=== PATIENT | female | born 2000 | race Caucasian/White ===

== ENCOUNTER 2021-09-09 22:35 | Emergency (ER) | payer OTHER, SELFPAY ==
[2021-09-09 22:59] VITALS: BP 134/66; PULSE 93; TEMP 36.9; O2SAT 99
[2021-09-09 23:02] VITALS: BMI 20.7
--- NOTE | 2021-09-09 23:09 | DI.US.S_ITS ---
PROCEDURE: US OB <= 14 WEEKS FETUS INDICATIONS: 8 weks with vag spotting OUTSIDE/PRIOR DATING DATA: Last menstrual period (LMP): July 04, 2020 LMP-based estimated date of delivery (ADITYA): April 20, 2022 First dating scan (date and location): September 09, 2021 Estimated date of delivery (ADITYA) from first dating scan: May 07, 2022 The calculations are made using the ultrasound ADITYA of May 07, 2022 TECHNIQUE: Real-time scanning was performed of the fetus and maternal pelvic organs, with image documentation. Endovaginal scanning was also performed to better visualize the fetus and maternal ovaries. COMPARISON: None. FINDINGS: Embryo: Single living intrauterine identified. Yolk sac and pole are identified. [place]-rump length measures 0.2 centimeters corresponding to ultrasound estimated gestational age of 5 weeks 5 days. Heart rate: 104 beats per minute Maternal organs: Left ovary not seen. Right corpus luteal cyst noted. IMPRESSION: Single living intrauterine with ultrasound estimated gestational age of 5 weeks 5 days corresponding to ultrasound ADITYA of May 07, 2022. Dictated by: Raysa Deshpande MD, PhD on 09/10/2021 at 0:32 We strive to produce accurate, complete, and clear reports of imaging services. To assist us in improving patient care, this report was composed using standard report templates and voice recognition software. Therefore, it may contain abnormal punctuation, misrecognitions, insertions and/or omissions. Occasional wrong-word or sound-alike substitutions may occur. Though we review the report and make efforts to correct it, we do recommend that the report be read carefully in proper context to recognize any text inaccuracies. Approved by: Raysa Deshpande MD, PhD on 09/10/2021 at 0:34
[2021-09-09 23:32] LABS: Add Manual Diff / Slide Review NO; Basophils Absolute Auto 0 /uL (0-100); Basophils Percent Auto 0.3 % (0-2); Eosinophils Absolute Auto 100 /uL (0-450); Eosinophils Percent Auto 1.9 % (2-4); Hematocrit 38.8 % (36-46); Hemoglobin 13.2 g/dL (12.0-16.0); Lymphocytes Absolute Auto 1600 /uL (1100-4500); Lymphocytes Percent Auto 26.8 % (25-40); Mean Corpuscular Hemoglobin 28.4 PG (26-34); Mean Corpuscular Volume 83.5 fL (80-100); Monocytes Absolute Auto 500 /uL (0-900); Monocytes Percent Auto 8.2 % (3-14); Neutrophils Absolute Auto 3700 /uL (1500-7000); Neutrophils Percent Auto 62.8 % (50-75); Platelet Count 274 X10^3/uL (150-400); Red Blood Cell Count 4.65 X10^6/uL (4.0-5.2); Red Cell Distribution Width 12.9 % (11.6-14.8); White Blood Cell Count 5.9 X10^3/uL (4.5-11.0)
--- NOTE | 2021-09-09 23:36 | ED.GENADULT ---
HPI - General Adult General Chief complaint: Vaginal Bleeding Stated complaint: 8 weeks , spotting Time Seen by Provider: 09/09/21 23:09 Source: patient Mode of arrival: Ambulatory Limitations: no limitations History of Present Illness HPI narrative: 20-year-old female. Is 8 weeks . Has not seen an OB provider at this point during this . Her earlier today started having some light vaginal spotting. No cramping. No urinary symptoms. No change in bowel habits. No fevers. No abdominal pain. Related Data Allergies Allergy/AdvReac Type Severity Reaction Status Date / Time No Known Drug Allergies Allergy Verified 09/09/21 23:01 Review of Systems Constitutional Constitutional: Reports system reviewed and no additional complaints, except as documented Gastrointestinal Gastrointestinal: Reports as per HPI and Reports system reviewed and no additional complaints, except as documented Genitourinary Genitourinary: Reports system reviewed and no additional complaints, except as documented and Reports as per HPI Integumentary/Breasts Skin/Breast: Reports system reviewed and no additional complaints, except as documented Hematologic/Lymphatic On Anticoagulants: No Patient History Medical History Healthy adult Social History Smoking Status: Never smoker Smoking Status: Never smoker Substance Use Type: does not use Exam Initial Vital Signs Initial Vital Signs: Vital Signs Temperature 98.4 F 09/09/21 22:59 Pulse Rate 93 H 09/09/21 22:59 Blood Pressure 134/66 09/09/21 22:59 Pulse Oximetry 99 09/09/21 22:59 Resp Effort & Inspection: normal respiratory effort Cardio Rate: regular rate GI Inspection: normal to inspection Skin General: no rashes or lesions noted Neuro General: patient alert, patient awake and moves all extremities Extrem General: normal to inspection Psych Appearance: grossly normal and well kempt Course Orders Ordered: ED Orders 09/09/21 23:09 US OB <= 14 weeks fetus Stat 09/09/21 23:20 ABO RH Type Stat Basic Metabolic Panel Stat Complete Blood Count AUTO DIFF Stat HCG Quantitative /Beta subunit Stat Vital Signs Vital signs: Vital Signs - 8 hr 09/09/21 22:59 09/10/21 01:13 Temperature 98.4 F Pulse Rate 93 H 80 Respiratory Rate 18 Blood Pressure 124/65 Blood Pressure [Left Arm] 134/66 Pulse Oximetry 99 98 Medical Decision Making Lab Data Lab results reviewed: Yes I reviewed the patient's lab results. Result diagrams: 09/09/21 23:20 09/09/21 23:20 Labs: Lab Results 09/09/21 09/09/21 09/09/21 Range/Units 23:20 23:20 23:20 WBC 5.9 (4.5-11.0) X10^3/uL RBC 4.65 (4.0-5.2) X10^6/uL Hgb 13.2 (12.0-16.0) g/dL Hct 38.8 (36-46) % MCV 83.5 (80-100) fL MCH 28.4 (26-34) PG MCHC 34.0 (30-36) % RDW 12.9 (11.6-14.8) % Plt Count 274 (150-400) X10^3/uL Neut % (Auto) 62.8 (50-75) % Lymph % (Auto) 26.8 (25-40) % [place] % (Auto) 8.2 (3-14) % Eos % (Auto) 1.9 L (2-4) % Baso % (Auto) 0.3 (0-2) % Neut # (Auto) 3700 (2314-0388) /uL Lymph # (Auto) 1600 (7345-6298) /uL [place] # (Auto) 500 (0-900) /uL Eos # (Auto) 100 (0-450) /uL Baso # (Auto) 0 (0-100) /uL Sodium 141 (137-145) mmol/L Potassium 3.9 (3.4-5.1) mmol/L Chloride 104 (98-107) mmol/L Carbon Dioxide 28 (22-32) mmol/L BUN 10 (7-17) mg/dL Creatinine 0.59 (0.52-1.04) mg/dL Estimated GFR > 60.0 (>60) mL/min BUN/Creatinine Ratio 16.9 (6-22) Glucose 101 H (70-100) mg/dL Calcium 9.9 (8.4-10.2) mg/dL HCG, Quant 66185 mIU/mL Blood Type O Positive Urine Dip Bedside Urine Glucose Negative Bedside Urine Bilirubin - Negative Bedside Urine Ketone - Negative Urine Specific [place] 1.015 Bedside Urine Occult Blood +/- Bedside Urine pH 8.0 Bedside Urine Protein - Negative Bedside Urine Urobilinogen - Negative Bedside Urine Nitrite - Negative Bedside Urine Leukocytes - Negative Esterase Point of care testing: Urine Dip Bedside Urine Glucose Negative Bedside Urine Bilirubin - Negative Bedside Urine Ketone - Negative Urine Specific [place] 1.015 Bedside Urine Occult Blood +/- Bedside Urine pH 8.0 Bedside Urine Protein - Negative Bedside Urine Urobilinogen - Negative Bedside Urine Nitrite - Negative Bedside Urine Leukocytes - Negative Esterase Imaging Data US - OB: Radiologist's Impression: [address] [address] Ultrasound Report Signed Patient: Denice Ramey MR#: [id number] : 2000 Acct:[id number] Age/Sex: 20 / F Date of Service: 09/09/21 Loc: ED Accession Number: [id number] ?? Procedure: US OB <= 14 weeks fetus Ordering Provider: Mario Blackman D.O. PROCEDURE:? US OB <= 14 WEEKS FETUS ? INDICATIONS:? 8 weks with vag spotting ? OUTSIDE/PRIOR DATING DATA:? Last menstrual period (LMP):? July 04, 2020 LMP-based estimated date of delivery (ADITYA):? April 20, 2022 First dating scan (date and location):? September 09, 2021 Estimated date of delivery (ADITYA) from first dating scan:? May 07, 2022 The calculations are made using the ultrasound ADITYA of May 07, 2022 ? TECHNIQUE:? Real-time scanning was performed of the fetus and maternal pelvic organs, with image documentation.? Endovaginal scanning was also performed to better visualize the fetus and maternal ovaries.? ? COMPARISON:? None. ? FINDINGS:? ? Embryo:? Single living intrauterine identified.? Yolk sac and pole are identified.? [place]-rump length measures 0.2 centimeters corresponding to ultrasound estimated gestational age of 5 weeks 5 days. Heart rate:? 104 beats per minute ? Maternal organs:? Left ovary not seen.? Right corpus luteal cyst noted. ? ? IMPRESSION:? Single living intrauterine with ultrasound estimated gestational age of 5 weeks 5 days corresponding to ultrasound ADITYA of May 07, 2022. ? ? Dictated by: Raysa Deshpande MD, PhD on 09/10/2021 at 0:32 ? We strive to produce accurate, complete, and clear reports of imaging services. To assist us in improving patient care, this report was composed using standard report templates and voice recognition software. Therefore, it may contain abnormal punctuation, misrecognitions, insertions and/or omissions. Occasional wrong-word or sound-alike substitutions may occur. Though we review the report and make efforts to correct it, we do recommend that the report be read carefully in proper context to recognize any text inaccuracies. ? ? Approved by: Raysa Deshpande MD, PhD on 09/10/2021 at 0:34?? MDM Narrative Medical decision making narrative: Well-appearing, Rh positive, ultrasound shows live intrauterine at 5 weeks which corresponds to projected day. Did discuss this with her. We can hold on further workup for now. She was given return precautions and follow-up instructions. She expressed understanding and agreement Discharge Plan Departure Patient Disposition: Home Clinical Impression: Threatened miscarriage Instructions: DI for Vaginal Bleeding During Activity Restrictions/Additional Instructions: Your workup here in the emergency department is very reassuring. The ultrasound does show a live fetus in the uterus at approximately 5 weeks and 5 days gestation. Continue to take your vitamins. You do need to follow-up with a OB provider in the next couple weeks. Return to the emergency department for any new or worsening symptoms
[2021-09-09 23:45] LABS: BUN Creatinine Ratio 16.9 (6-22); Blood Urea Nitrogen 10 mg/dL (7-17); Calcium 9.9 mg/dL (8.4-10.2); Carbon Dioxide 28 mmol/L (22-32); Chloride 104 mmol/L (98-107); Estimated Glomerular Filt Rate > 60.0 mL/min (>60); Glucose 101 mg/dL (70-100); HEMOLYSIS < 15 (0-50); Potassium 3.9 mmol/L (3.4-5.1); Sodium 141 mmol/L (137-145)
[2021-09-10 00:27] LABS: HCG Quantitative /Beta subunit 20370 mIU/mL
[2021-09-10 01:13] VITALS: BP 124/65; PULSE 80; RESP 18; O2SAT 98
== END 2021-09-10 01:14 | disposition home or self-care (01) ==
PROVIDERS: Emergency Provider Emergency Medicine
DX: O20.0 Threatened abortion (principal); Z3A.01 Less than 8 weeks gestation of pregnancy
CPT/HCPCS: 36415; 76801; 80048; 81003; 84702; 85025; 86900; 86901; 99283; 99284

== ENCOUNTER → 2021-11-06 13:47 | Outpatient (CLI) | payer OTHER, SELFPAY ==
[2021-11-06 14:11] LABS: Appearance Urine UA CLEAR; Bilirubin Urine UA NEGATIVE (NEGATIVE); Color Urine UA YELLOW; Glucose Urine UA NEGATIVE (Negative); Ketones Urine UA NEGATIVE (NEGATIVE); Leukocyte Esterase Urine UA TRACE (NEGATIVE); Nitrite Urine UA NEGATIVE (Negative); Occult Blood Urine UA NEGATIVE (Negative); Protein Urine UA NEGATIVE (Negative); Urobilinogen Urine UA 0.2 E.U./dL (0.2)
[2021-11-06 14:19] LABS: Bacteria Urine Few (2-10); Culture Indicated Urine Cult Not Indicated; RBC Urine 0-1/HPF (0-5/HPF); Squamous Epithelial Cell Urine 5-10 /HPF (0-5/HPF); WBC Urine 1-5/HPF (0-5/HPF)
[2021-11-06 14:53] LABS: Add Manual Diff / Slide Review NO; Basophils Absolute Auto 0 /uL (0-100); Basophils Percent Auto 0.1 % (0-2); Eosinophils Absolute Auto 0 /uL (0-450); Eosinophils Percent Auto 0.5 % (2-4); Hematocrit 38.5 % (36-46); Hemoglobin 12.8 g/dL (12.0-16.0); Lymphocytes Absolute Auto 1000 /uL (1100-4500); Lymphocytes Percent Auto 13.2 % (25-40); Mean Corpuscular HGB Conc 33.1 % (30-36); Mean Corpuscular Volume 84.7 fL (80-100); Monocytes Absolute Auto 600 /uL (0-900); Neutrophils Absolute Auto 5700 /uL (1500-7000); Neutrophils Percent Auto 78.2 % (50-75); Platelet Count 259 X10^3/uL (150-400); Red Blood Cell Count 4.55 X10^6/uL (4.0-5.2); Red Cell Distribution Width 12.3 % (11.6-14.8); White Blood Cell Count 7.2 X10^3/uL (4.5-11.0)
[2021-11-07 08:10] LABS: RPR Screen Non Reactive (Non Reactive); Varicella IgG Antibody 199 index (Immune >165)
[2021-11-09 16:13] LABS: Hepatitis B Surface Antigen NEGATIVE s/c (NEGATIVE); Rubella Antibody IgG 43.4 IU/mL (>15)
[2021-11-09 16:30] LABS: HIV 1 & 2 Ab/Ag 4th Gen Combo NEGATIVE (NEGATIVE); Hep C Virus Ab w/Reflex Quant NEGATIVE s/c (NEGATIVE)
== END ==
PROVIDERS: Referring Provider Obstetrics & Gynecology; Visit Provider Obstetrics & Gynecology
DX: Z34.80 Encounter for supervision of other normal pregnancy, unspecified trimester (principal)
CPT/HCPCS: 36415; 80055; 81003; 81015; 86787; 86803; 86850; 86900; 86901; 87086; 87389

== ENCOUNTER → 2022-01-13 12:03 | Outpatient (CLI) | payer OTHER, SELFPAY ==
--- NOTE | 2022-01-13 12:04 | DI.US.S_ITS ---
PROCEDURE: US OB >= 14 WEEKS FETUS INDICATIONS: ANATOMY OUTSIDE/PRIOR DATING DATA: Last menstrual period (LMP): July 04, 2021. LMP-based estimated date of delivery (ADITYA): April 20, 2022. First dating scan (date): September 09, 2021. Estimated date of delivery (ADITYA) from first dating scan: May 07, 2022. TECHNIQUE: Real-time scanning was performed of the fetus, with image documentation and biometric measurements. COMPARISON: None. FINDINGS: General: A single living intrauterine gestation is present. Presentation: Transverse. Placenta: Placental position is anterior , without previa. Amniotic fluid index: 18.7 cm, normal range is 5-24 cm. Single deepest vertical pocket is 4.8 cm. heart rate: 137 beats per minute. Maternal cervical canal: 3.9 cm long. Normal lower limit is 2.5 cm. biometrics: Biparietal diameter: 5.7 cm Head circumference: 21.7 cm Abdominal circumference: 19.7 cm Femur length: 4.1 cm Clinically estimated gestational age: 23 weeks, 5 days Composite gestational age from present scan: 23 weeks, 5 days Estimated weight and percentile: 638 g; 49 percentile Anatomic survey: Neuro: Ventricles are non-dilated at less than 10 mm. Cisterna magna is normal at 3-11 mm. Cerebellum is normal in size and morphology. Nuchal skin fold: Normal at less than 6 mm between 14-21 weeks gestational age. Face: Nose and lips, facial profile are normal. Spine: No evidence for spina bifida. Heart: 4-chambered heart is present, with normal ventricular outflow tracts. Diaphragm: Diaphragm is intact. Stomach: Left-sided stomach is present. Kidneys: No hydronephrosis. Normal is less than 5 mm in 2nd trimester, less than 7 mm in 3rd trimester. Cord: 3-vessel cord has orthotopic insertion. Bladder: Normal in size. Extremities: All 4 extremities identified. IMPRESSION: Single live intrauterine gestation as detailed above. We strive to produce accurate, complete, and clear reports of imaging services. To assist us in improving patient care, this report was composed using standard report templates and voice recognition software. Therefore, it may contain abnormal punctuation, insertions and/or omissions. Occasional wrong-word or sound-alike substitutions may occur. Though we review the report and make efforts to correct it, we do recommend that the report be read carefully in proper context to recognize any text inaccuracies. Dictated by: Rod Nicole M.D. on 01/13/2022 at 13:31 Approved by: Rod Nicole M.D. on 01/13/2022 at 13:33
== END ==
PROVIDERS: Referring Provider Obstetrics & Gynecology; Visit Provider Obstetrics & Gynecology
DX: Z34.82 Encounter for supervision of other normal pregnancy, second trimester (principal); Z3A.23 23 weeks gestation of pregnancy
CPT/HCPCS: 76811

== ENCOUNTER → 2022-02-05 11:58 | Outpatient (CLI) | payer OTHER, SELFPAY ==
[2022-02-05 14:46] LABS: Add Manual Diff / Slide Review NO; Basophils Absolute Auto 0 /uL (0-100); Basophils Percent Auto 0.1 % (0-2); Eosinophils Absolute Auto 0 /uL (0-450); Eosinophils Percent Auto 0.4 % (2-4); Hematocrit 34.6 % (36-46); Hemoglobin 11.9 g/dL (12.0-16.0); Lymphocytes Absolute Auto 900 /uL (1100-4500); Lymphocytes Percent Auto 12.6 % (25-40); Mean Corpuscular HGB Conc 34.3 % (30-36); Mean Corpuscular Hemoglobin 29.1 PG (26-34); Monocytes Absolute Auto 400 /uL (0-900); Monocytes Percent Auto 5.2 % (3-14); Neutrophils Absolute Auto 6000 /uL (1500-7000); Neutrophils Percent Auto 81.7 % (50-75); Platelet Count 261 X10^3/uL (150-400); Red Blood Cell Count 4.07 X10^6/uL (4.0-5.2); Red Cell Distribution Width 12.6 % (11.6-14.8); White Blood Cell Count 7.3 X10^3/uL (4.5-11.0)
[2022-02-05 14:51] LABS: GTT (PREG) 1 Hour PP 50gm Dose 120 mg/dL (76-139)
[2022-02-05 15:21] LABS: Thyroid Stimulating Hormone 0.707 uIU/mL (0.47-4.68)
== END ==
PROVIDERS: PCP Obstetrics & Gynecology; Referring Provider Obstetrics & Gynecology; Visit Provider Obstetrics & Gynecology
DX: Z34.80 Encounter for supervision of other normal pregnancy, unspecified trimester
CPT/HCPCS: 36415; 82105; 82950; 84443; 85025

== ENCOUNTER → 2022-04-09 16:42 | Outpatient (CLI) | payer OTHER, SELFPAY ==
[2022-04-10 13:45] LABS: Strep Grp B PCR NEG for Grp B Strep
== END ==
PROVIDERS: Visit Provider Obstetrics & Gynecology
DX: Z34.83 Encounter for supervision of other normal pregnancy, third trimester (principal); Z3A.36 36 weeks gestation of pregnancy
CPT/HCPCS: 87653

== ENCOUNTER 2022-04-26 05:38 | Inpatient (IN) | payer OTHER, SELFPAY ==
[2022-04-26 07:07] LABS: Add Manual Diff / Slide Review NO; Basophils Absolute Auto 0 /uL (0-100); Basophils Percent Auto 0.2 % (0-2); Eosinophils Absolute Auto 100 /uL (0-450); Eosinophils Percent Auto 0.7 % (2-4); Hematocrit 35.9 % (36-46); Hemoglobin 12.3 g/dL (12.0-16.0); Lymphocytes Absolute Auto 1300 /uL (1100-4500); Mean Corpuscular HGB Conc 34.3 % (30-36); Mean Corpuscular Volume 84.4 fL (80-100); Monocytes Absolute Auto 700 /uL (0-900); Monocytes Percent Auto 9.7 % (3-14); Neutrophils Absolute Auto 5300 /uL (1500-7000); Neutrophils Percent Auto 71.4 % (50-75); Platelet Count 237 X10^3/uL (150-400); Red Blood Cell Count 4.26 X10^6/uL (4.0-5.2); Red Cell Distribution Width 13.2 % (11.6-14.8); White Blood Cell Count 7.4 X10^3/uL (4.5-11.0)
--- NOTE | 2022-04-26 07:31 | P.HPOB_ITS ---
OB HPI Date/Time Date of admission: 04/26/22 Date Patient Seen: 04/26/22 Time Patient Seen: 07:32 History of Present Condition Chief complaint: REPEAT W/REVISION OF KELOID SCAR ADITYA Calculator Estimated Delivery Date Method Current WG Current Estimate 05/07/22 Ultrasound #1 38w 3d Other Estimates 04/10/22 LMP (Uncertain) 42w 2d Estimated Gestational Age (weeks): 39 : 2 Para: 1 care: good care, initiated at week # (10), number of visits (11) and pounds weight gain (14) Dating criteria OB: LMP confirmed by 1st trimester US Ultrasounds: normal 1st trimester US and normal mid trimester US Obstetrical complications: none Medical complications OB: cardiovascular (One episode of SVT) and immunologic (COVID at 35 weeks) Indications Operative indications ( section): previous uterine surgery Preadmission Labs Last OB Lab Results: Blood Type O Positive 11/06/21 13:51 Antibody Screen Negative 11/06/21 13:51 Hematocrit 35.9 % (36-46) L 04/26/22 06:00 Hemoglobin 12.3 g/dL (12.0-16.0) 04/26/22 06:00 Hepatitis B Surface Antigen Negative s/c (NEGATIVE) 11/06/21 13 :51 Hepatitis C Antibody Negative s/c (NEGATIVE) 11/06/21 13:51 Rubella Antibody 43.4 IU/mL (>15) 11/06/21 13:51 Varicella-Zoster IgG Antibody 199 index (Immune >165) 11/06/21 13:51 Glucose 1 Hour 120 mg/dL (76-139) 02/05/22 12:05 Group B Streptococcus (PCR) Neg for grp b strep 04/09/22 16:42 -: Urine: negative External Labs -: Urine: negative Prior (ies) Past Pregnancies Del. Date GA/Weeks Labor Lgth Wt Sex Route Outcome Anesthesia Place Delv Breastfeed Preg Comp Name 03/27/19 39 12 6 lb 3 oz Female live - full t erm intravenous analgesics [place] no none Let[place] Delivery Date: 03/27/19 Last Updated by: Frida Vogt RScotty Distress, pt felt like BP was high but not Evaluation Evaluation Baseline heart rate: 135 Variability: Moderate (11-25) monitor accelerations: Present Monitor Decelerations: Absent Status: Category l PFSH Medical History (Updated 04/20/22 @ 09:12 by Freya Bae MD) Healthy adult Neuroblastoma Surgical History (Updated 04/20/22 @ 09:12 by Freya Bae MD) Previous section Family History (Updated 09/28/21 @ 10:11 by Frida Vogt RN) Father Hypertension Grandmother Hypertension Diabetes mellitus Grandfather Hypertension Social History marital status: number of children: 1 household members: spouse lives independently: Yes caregiver/support person: Yes housing: house (Base housing) pets and animals: Yes (Dog) education level: college occupational status: unemployed current occupational exposures/hazards: No seatbelt use: always water heater temp set < 120 deg: Yes working smoke detector in home: Yes fire extinguisher in home: Yes carbon monox detector in home: Yes firearms in home: Yes firearms unloaded and locked: Yes do you feel safe at home: Yes Smoking Status: Never smoker alcohol intake: former (social when not ) substance use type: does not use during the past year weight has: remained stable well-balanced diet: daily or most days daily servings fruits/ve or more times/day caffeine: Yes (Keep to 200mg per day) Type(s) of exercise: walking Meds Home Medications and Allergies Home Medications Medication Instructions Recorded Confirmed Type citalopram 10 mg tablet (Celexa) 10 mg PO DAILY 09/28/21 04/20/22 History prenat.vits,jovita,dzc-glhx-lnpbs 1 tab PO DAILY 09/28/21 04/20/22 History Double Electric Breast Pump #1 ea 04/14/22 04/20/22 Rx citalopram 20 mg tablet (Celexa) 20 mg PO DAILY #30 tabs 04/20/22 04/20/22 Rx hydroxyzine HCl 25 mg tablet 25 mg PO BID PRN anxiety #20 tabs 04/20/22 04/20/22 Rx Allergies Allergy/AdvReac Type Severity Reaction Status Date / Time No Known Drug Allergies Allergy Verified 04/26/22 05:42 OB Exam Narrative Exam Narrative: Generally: Patient is sitting up in bed, no acute distress Lungs: Clear to auscultation bilaterally Cardiovascular: Regular rate and rhythm Fundal height: 39 cm Estimated weight: 7-1/2 lb Abdomen: Well-healed Pfannenstiel scar Extremities: Trace edema, 1+ DTRs Objective Labs Result Diagrams: 04/26/22 06:00 Labs: Laboratory Results - last 24 hr 04/26/22 06:00 WBC 7.4 RBC 4.26 Hgb 12.3 Hct 35.9 L MCV 84.4 MCH 29.0 MCHC 34.3 RDW 13.2 Plt Count 237 Neut % (Auto) 71.4 Lymph % (Auto) 18.0 L [place] % (Auto) 9.7 Eos % (Auto) 0.7 L Baso % (Auto) 0.2 Neut # (Auto) 5300 Lymph # (Auto) 1300 [place] # (Auto) 700 Eos # (Auto) 100 Baso # (Auto) 0 Assessment and Plan Assessment and Plan Assessment and Plan narrative: Assessment: 21-year-old 2 para 1 at estimated gestational age of 39 weeks gestation Previous section Keloid scar Plan: Repeat low-transverse section and revision of scar The risks, benefits, and alternatives to the procedure were explained to the patient. The risks including bleeding, infection, injury to the bowel, bladder, or ureters. She understands these risks and agrees to proceed. A full par Q was held and consent form was signed. Time Spent with Patient Total time spent with greater than 50% in coordination of care (as documented) at patient's floor/unit and/or counseling patient:: 15-24 minutes
[2022-04-26 07:34] LABS: COVID19 -Nasal RAPID Negative (Negative)
--- NOTE | 2022-04-26 07:41 | PM.PREOP ---
Pre-operative Note COVID-19 COVID-19 status: Negative Result date/Date tested (Pos, Neg/Pending): 04/26/22 Criteria for continued procedure: Non-surgical alternatives not available or appropriate per current SOC Interval Note History & Physical reviewed/Exam performed by Physician: Yes Changes to H&P: No H&P completed within 30 days and has changed as indicated here:: 04/20/22
--- NOTE | 2022-04-26 08:03 | SUR.OPER ---
Supine on padded OR bed, head on pillow, arms secured on padded arm boards at <90 degrees abduction, legs uncrossed, safety belt at thigh. Directed and approved by surgeon.
[2022-04-26] MEDS: CEFAZOLIN 2 GM/20 ML SYRINGE IV (08:12)
[2022-04-26] MEDS: TRIAMCINOLONE 40 MG/ML VIAL IM (08:37)
--- NOTE | 2022-04-26 08:42 | SUR.OPER ---
Guillory inserted with ease, clear yellow urine visualized in tubing prior to balloon inflation. Secured to thigh prior to leaving OR. Viable baby girl delivered at 0834. Placenta and cord blood tubes sent with OB RN.
[2022-04-26] MEDS: LACTATED RINGERS 1,000 ML 100 ML IV ×2 (09:08→10:23)
[2022-04-26 09:18] VITALS: BP 111/68; PULSE 75; RESP 16; TEMP 36.2; O2SAT 100
[2022-04-26 09:23] VITALS: BP 114/59; PULSE 69; RESP 16; O2SAT 100
[2022-04-26 09:28] VITALS: BP 105/58; PULSE 70; RESP 15; O2SAT 100
--- NOTE | 2022-04-26 09:28 | PM.OBCS.1 ---
Operative Date/Time/Diagnoses Date of procedure: 04/26/22 Time of procedure: 09:28 Pre-op diagnosis: Estimated gestational age of 39 weeks Previous section Keloid scar Post-op diagnosis: same Procedure & Clinicians Procedure: Repeat low-transverse section Excision of keloid scar Same procedure as scheduled: Yes Indications: Estimated gestational age of 39 weeks gestation Previous section Keloid scar Surgeon: Freya Bae Click Yes if Unassisted: No Combat Control: Priyanka Olson Anesthesia Type: Spinal (With Duramorph) Operative Notes Findings: Live female infant in the JEVON presentation Keloid scar of the previous Pfannenstiel incision Normal uterus, tubes, and ovaries Closure Type: primary Specimen(s): cord blood and placenta Intraoperative meds administered: Duramorph, Ketorolac and Pitocin Applied: Catheter (To continuous drainage) Estimated Blood Loss (mL): 350 Blood products transfused: none Procedure in detail: The patient was taken to the operating room where she was placed in the seated position. Spinal anesthesia with Duramorph was administered. The patient was then placed in the dorsal supine position with a leftward tilt. She was prepped and draped in the usual sterile fashion. A timeout was performed. After spinal analgesia was found to be adequate, the previous Pfannenstiel incision was excised in an elliptical fashion. The incision was then carried through to the underlying layer fascia. The fascia was nicked in the midline, and the incision extended bilaterally with the [place] scissors. The superior aspect of the fascial incision was grasped with a Gracie clamps, elevated, and the underlying rectus muscles dissected off sharply and bluntly. Attention was then turned to the inferior aspect of this incision which in a similar fashion was grasped with a [place] clamps, elevated, and the underlying rectus muscles dissected off sharply and bluntly. The rectus muscles were in the midline. The peritoneum was identified, grasped between 2 hemostats, and entered sharply with the Metzenbaum scissors. This incision was extended superiorly and inferiorly with good visualization of the bladder. The bladder blade was inserted. The vesicouterine peritoneum was identified, grasped with the pickup, and entered sharply with the Metzenbaum scissors. This incision was extended bilaterally, and the bladder flap was created digitally. The bladder blade was reinserted. The lower uterine segment was incised in a transverse fashion with the scalpel. Upon entering the amniotic sac there was moderate amount of clear amniotic fluid. The 's head was delivered without difficulty. The nose and mouth were suctioned with bulb suction. The remainder of the body delivered without difficulty, and the was wrapped in a blanket. The cord was double clamped and cut after 1 minute. The infant was handed off to waiting RN and RT. Pitocin was given in the IV fluids. The placenta was expressed.. The uterus was cleared of all clots and debris. The uterine incision was repaired with #1 chromic in a running interlocking fashion, and a second layer the same suture was used for an imbricating layer. Hemostasis was achieved. The tubes and ovaries were examined and were found to be normal. The gutters were cleared of all clots and debris. The bladder flap was reapproximated using 2-0 Vicryl in a running fashion. The parietal peritoneum was closed using 2-0 Vicryl in a running fashion. The fascia was reapproximated using 0 Vicryl in a running fashion. The subcutaneous layer was copiously irrigated with warm normal saline. 6 simple interrupted sutures of 3-0 Vicryl were placed to reapproximate the subcutaneous layer. The skin was closed with 4-0 Monocryl in a subcuticular fashion. Steri-Strips were placed. An Aquacel dressing was placed. The uterus was expressed of a small amount of old blood. Sponge, lap, and instrument counts were correct x-2. The patient tolerated the procedure well, and was taken to PACU in stable condition. Complications: none Baby 1: Gender: Female Presentation: vertex Position: Left Occiput Anterior Placental Delivery Description: Expressed Cord Vessel Description: 3 Vessels score (1 min): 7 score (5 min): 9 weight: 6 lb 5.7 oz Post-operative Condition: stable Disposition: PACU Aftercare: routine postop
[2022-04-26 09:33] VITALS: BP 113/64; PULSE 63; RESP 14; O2SAT 100
--- NOTE | 2022-04-26 09:39 | SUR.PHASEI ---
denied pain and nausea upon admission to pacu, unable to edit in EHR
[2022-04-26 09:48] VITALS: BP 108/66; PULSE 65; RESP 14; TEMP 36.1; O2SAT 99
[2022-04-26] MEDS: KETOROLAC 30 MG/ML VIAL IV ×2 (15:10→21:39)
[2022-04-26] MEDS: ACETAMINOPHEN 325 MG TABLET 650 MG PO (23:39)
--- NOTE | 2022-04-27 04:05 | PC.NURSE ---
Patient was given 3 doses of Toradol starting with the first in OR. The last dose on mar not given.
[2022-04-27] MEDS: IBUPROFEN 600 MG TABLET PO ×2 (05:42→12:40)
[2022-04-27] MEDS: ACETAMINOPHEN 325 MG TABLET 650 MG PO (05:43)
[2022-04-27 08:48] LABS: Hematocrit 30.4 % (36-46); Hemoglobin 10.3 g/dL (12.0-16.0)
[2022-04-27] MEDS: DOCUSATE 100 MG CAPSULE 200 MG PO (09:45)
[2022-04-27] MEDS: PRENATAL VIT,CALC/IRON/FOLIC 1 TABLET 1 TAB PO (09:45)
[2022-04-27] MEDS: CITALOPRAM 10 MG TABLET 20 MG PO (09:45)
[2022-04-27] MEDS: SIMETHICONE 80 MG TABLET PO (13:49)
[2022-04-27 14:05] VITALS: BP 116/79; PULSE 86; RESP 17; TEMP 36.7
--- NOTE | 2022-05-02 14:46 | PM.OBDS.1 ---
Discharge Providers Provider Date of admission: 04/26/22 05:38 Discharge Date: 04/27/22 Discharge provider: Freya Bae MD Summary Hospital Course Date Patient Seen: 04/27/22 Time Patient Seen: 17:00 Diagnoses: Thirty-nine weeks gestation Previous section Revision of scar Repeat low-transverse section Hospital Course: Patient is a 21-year-old 2 para 2 who presented on April 26, 2022 for a scheduled repeat low-transverse section and revision of scar. She underwent this procedure without complication. On postop day # 1 patient was able to void without the catheter. She was ambulating independently. She was tolerating a diet without nausea or vomiting. was going well. Her bleeding was tapering. Her pain was well controlled. She requested discharge on postop day # 1. Peripartum Data Infant Delivery Method: Section Laceration Description: None Episiotomy description: None Procedures: Repeat low-transverse section Revision of keloid scar Spinal anesthesia complications: none 1: Gender: Female Disposition of : home Status at Discharge Cognitive/behavioral status at discharge: oriented Functional status at discharge: independent ambulation Overall status at discharge: patient is progressing back to baseline Time Spent with Patient Time attestation: Total time spent providing and/or coordinating discharge services: Time spent: Less than 30 minutes Objective Labs Result Diagrams: 04/27/22 08:33 Exam Vital Signs (past 8 hours): Oxygen Delivery Method Room Air Narrative Exam Narrative: Generally: Patient lying in bed, no acute distress Lungs: Clear to auscultation bilaterally Cardiovascular: Regular rate and rhythm Fundus: Firm at U -1 Incision: Clean dry and intact with Aquacel dressing Extremities: Trace edema, negative Homans Discharge Plan Discharge Plan Patient Disposition: Home Provider Discharge Comment: Call with fever, chills, or redness or drainage around the incision Call with bleeding more than a pad in an hour Tylenol 650 mg every 6 hours as needed Ibuprofen 600 mg every 6 hours as needed Discharge orders & Medications Prescriptions: Continued prenat.vits,jovita,[id number] Tablet 1 tab PO DAILY citalopram [Celexa] 20 mg tablet 20 mg PO DAILY Qty: 30 11RF Follow up/Referrals: Freya Bae MD [Physician] - 1 Week (1 week follow up appointment for incision check and bandage removal on May 04, at 8:30am. Please arrive 15 minutes early to check in. 6 week follow up appointment on June 07 @ 2:15pm. Please arrive 15 minutes early to check in.) Diet/Activity/Treatments Diet: Regular Activity: No heavy lifting Nothing in the vagina until bleeding stops Skin/Wound/Dressing Care Report to your healthcare provider any signs of infection, such as:: chills, fever, increased pain, unusual drainage and unusual redness Dressing: Do not remove Visit Report/Discharge Packet Instructions: DI for Stand Alone Forms: Discharge: Care
== END 2022-04-27 15:15 | disposition home or self-care (01) | DRG 788 ==
PROVIDERS: Admitting Provider Obstetrics & Gynecology; Referring Provider Obstetrics & Gynecology; Visit Provider Obstetrics & Gynecology
PROC: 10D00Z1 Extraction of Products of Conception, Low, Open Approach (ICD-10-PCS; CPT 59514; principal; 2022-04-26 07:45)
DX: O34.211 Maternal care for low transverse scar from previous cesarean delivery (principal); Z3A.39 39 weeks gestation of pregnancy; Z37.0 Single live birth; L91.0 Hypertrophic scar
CPT/HCPCS: 36415; 59050; 59510; 59514; 85014; 85018; 85025; 86850; 86900; 86901; 87635; C9803; J0690; J1885; J2274; J2590